=== PATIENT | female | born 1995 | race Caucasian/White ===

== ENCOUNTER 2018-12-17 15:20 | Emergency (ER) | payer OTHER ==
[~2018-12-17] VITALS: Ht 149.9 cm; Wt 47.6 kg
== END 2018-12-17 18:00 | disposition home or self-care (01) ==
LOC: ER 15:20
DX: S60.477A Other superficial bite of left little finger, initial encounter (principal); S60.471A Other superficial bite of left index finger, initial encounter; W55.01XA Bitten by cat, initial encounter; Y93.89 Activity, other specified; Y92.89 Other specified places as the place of occurrence of the external cause; Y99.8 Other external cause status